=== PATIENT | female | born 1990 | race Caucasian/White ===

== ENCOUNTER 2020-04-02 11:53 | Outpatient (CLI) | payer BC, SELFPAY ==
--- NOTE | ~2020-04-02 | US_ITS ---
EXAMINATION: US pelvic complete w TV DATE: 04/02/2020 12:37 INDICATION: Pelvic pain Comparison:No prior studies for comparison. TECHNIQUE: Multiple transabdominal and endovaginal sonographic images of the pelvis performed. FINDINGS: The uterus measures 9.9 x 5.3 x 6.9 cm. The endometrial complex measures 11 mm. The right ovary measures 3.2 x 2.2 x 1.8 cm and the left ovary measures 4.6 x 2.7 x 3.3 cm. There ar e small follicles in each ovary. There is a small hypoechoic mass of the left ovary measuring 2.2 cm with peripheral vascularity. There is a small amount of free fluid in the pelvis. There are no abnormal masses seen on either charli e. IMPRESSION: 1. 2.2 cm heterogeneous hypoechoic mass of the left ovary with peripheral vascularity. In the absence of known , this likely represents a hemorrhagic or involuting corpus luteal cyst. Correlate clinically. Reviewed, dictated and finalized at location [facility] IMPRESSION: 1. 2.2 cm heterogeneous hypoechoic mass of the left ovary with peripheral vascu larity. In the absence of known , this likely represents a hemorrhagic or involuting corpus luteal cyst. Correlate clinically.
== END 2020-04-02 11:54 | disposition home or self-care (01) ==
PROVIDERS: Visit Provider Advanced Practice Midwife
DX: R10.2 Pelvic and perineal pain (principal)
CPT/HCPCS: 76830; 76856